=== PATIENT | male | born 1985 | race Caucasian/White ===

== ENCOUNTER 2016-12-26 02:32 | Emergency (ER) | payer SELFPAY ==
[~2016-12-26] VITALS: Ht 167.6 cm; Wt 77.6 kg
[~2016-12-26 02:32] MED LIST: MOTRIN; TYLENOL
[2016-12-26 02:35] VITALS: BP 190/108
--- NOTE | 2016-12-26 02:42 | NUR ---
PT TAKEN TO BED 8
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
--- NOTE | 2016-12-26 03:37 | NUR ---
Dr. Gray evaluating patient at bedside.
--- NOTE | 2016-12-26 04:10 | NUR ---
Patient discharged with v/s stable BY DR. DAVIS. Written and verbal after care instructions given and explained. Patient verbalized understanding. Ambulatory with steady gait. All questions addressed prior to discharge. Advised to follow up with PMD.
[2016-12-26 04:11] VITALS: BP 147/82
== END 2016-12-26 04:10 | disposition home or self-care (01) ==
LOC: MED 02:32
DX: S01.81XA Laceration without foreign body of other part of head, initial encounter (principal); F17.200 Nicotine dependence, unspecified, uncomplicated; W22.8XXA Striking against or struck by other objects, initial encounter; Y93.89 Activity, other specified; Y92.89 Other specified places as the place of occurrence of the external cause; Y99.8 Other external cause status